=== PATIENT | male | born 1980 | race Two or more races ===

== ENCOUNTER 2023-06-17 09:48 | Emergency (ER) | payer OTHER ==
[~2023-06-17] VITALS: Ht 180.3 cm; Wt 95.3 kg
[2023-06-17] MEDS ORDERED: PEPCID AC10 MG (10:01)
== END 2023-06-17 12:02 | disposition home or self-care (01) ==
LOC: ER 09:48
DX: B86 Scabies (principal); Z88.8 Allergy status to other drugs, medicaments and biological substances
CPT/HCPCS: 96365; 99284; J2930; J3490